=== PATIENT | male | born 1965 | race Caucasian/White ===

== ENCOUNTER → 2024-06-02 14:56 | Outpatient (REF) | payer OTHER, SELFPAY | LOC: RAD 14:56 | PROVIDERS: ATTENDING PHYSICIAN Nurse Practitioner Family | DX: J18.9 Pneumonia, unspecified organism (principal) | CPT/HCPCS: 71046 ==

== ENCOUNTER 2024-06-04 10:27 | Emergency (ER) | payer OTHER, SELFPAY ==
[2024-06-04 10:45] VITALS: BP 121/80
--- NOTE | 2024-06-04 12:00 | ED.GENMED ---
History of Present Illness
<Junior Davis DO, Resident - Last Filed: 06/04/24 14:08>
General
Chief Complaint: Eye Problems
Source: patient
Time Seen by Provider: 06/04/24 11:44
History of Present Illness
History of Present Illness:
Pt is a 58 YO M with no significant medical history presenting to the ED for vision changes. Right eye visual blurriness in lower outer quadrant began ~4 days ago. Pt saw PCP and plodding operator on Thursday and ordered MRI brain to R/o optic nerve
swelling/ tumor. He presents today to the ER because PCP told him to come in for testing. Pt has a referral to neuroophthalmology for 07/27.
Past History
<Junior Davis DO, Resident - Last Filed: 06/04/24 14:08>
Past History
ED Past Medical History: GERD
ED Past Surgical History: Orthopedic (Knee surgery back surgery); Negative Appendectomy or Bowel resection
Social History
Tobacco: Non-smoker
Alcohol: None
Drug: None
Personal:
Living: with family
Employment: Employed
Family History
Family History: Hypertension
Review of Systems
<Junior Davis DO, Resident - Last Filed: 06/04/24 14:08>
Review of Systems
Constitutional: Reports no symptoms
EENT: Reports other (vision changes, blurry vision in R eye)
Respiratory: Reports no symptoms
Cardiac: Reports no symptoms
ABD/GI: Reports no symptoms
: Reports no symptoms
Musculoskeletal: Reports muscle pain (right lateral pec soreness for 4 days )
Neurological: Reports no symptoms
Phy Exam
<Junior Davis DO, Resident - Last Filed: 06/04/24 14:08>
General Physical Exam
General Presentation: well appearing
General age: appears stated age
General Skin: warm and dry
General Habitus: normal
General Mental: alert
General Hydration: appears well hydrated
Eye Exam
Eye Exam: PERRL, conjunctiva normal and other (decreased visual field on R side)
Neurological Exam
Neurological Exam: alert, oriented x3, CN II-XII intact, no motor deficits, no sensory deficits and speech normal
Psychiatric Exam
Psychiatric Exam: normal mood/affect
Course
<Junior Davis DO, Resident - Last Filed: 06/04/24 14:08>
Orders/Labs/Results
Orders:
Orders
06/04/24 13:07
CT Head W/o Iv Contrast Urgent
Comment:
Reason For Exam: vision changes
Vital Signs
Initial and Last Documented VS:
Initial Vital Signs
Temp Pulse Resp BP Pulse Ox
98.5 F 63 18 121/80 95
06/04/24 10:45 06/04/24 10:45 06/04/24 10:45 06/04/24 10:45 06/04/24 10:45
Last Documented Vital Signs
Temp Pulse Resp BP Pulse Ox
98.5 F 63 18 121/80 95
06/04/24 10:45 06/04/24 10:45 06/04/24 10:45 06/04/24 10:45 06/04/24 10:45
<Agapito Jarvis DO - Last Filed: 06/04/24 13:13>
Orders/Labs/Results
Orders:
Orders
06/04/24 13:07
CT Head W/o Iv Contrast Urgent
Comment:
Reason For Exam: vision changes
Vital Signs
Initial and Last Documented VS:
Initial Vital Signs
Temp Pulse Resp BP Pulse Ox
98.5 F 63 18 121/80 95
06/04/24 10:45 06/04/24 10:45 06/04/24 10:45 06/04/24 10:45 06/04/24 10:45
Last Documented Vital Signs
Temp Pulse Resp BP Pulse Ox
98.5 F 63 18 121/80 95
06/04/24 10:45 06/04/24 10:45 06/04/24 10:45 06/04/24 10:45 06/04/24 10:45
<Junior Davis DO, Resident - Last Filed: 06/04/24 14:08>
MDM/Problems Addressed
Differential Diagnosis Includes:
optic neuritis, papilledema, hemiquadranopsia
MDM/Problems Addressed:
Pt is a 58 YO M with no significant medical history presenting to the ED for vision changes. CT Head without contrast ordered. CT head shows no acute intracranial abnormalities. Recommended patient get MRI outpatient
Chronic conditions affecting care:
NA
Acute Exacerbation and/or Progression of Chronic Illness:
NA
<Junior Davis DO, Resident - Last Filed: 06/04/24 14:08>
*Radiology
Radiology exam reviewed: radiology read reviewed (CT head shows no acute intracranial abnormalities)
*Pulse Oximetry
Patient hypoxic: no
*EKG
Interpreted by ED Provider?: NA
*Mash Tub Cooker Operator Interpretation
Rate: Mash Tub Cooker Operator- N/A
*Critical Care Note
Total Time (30-74mins, 75-104mins- exclusive of procedures): Not Applicable
ED Attending Note
<Junior Davis DO, Resident - Last Filed: 06/04/24 14:08>
-
Portions of this chart may have been created with voice recognition software.� Occasional wrong word or��sound alike� substitutions may have occurred due to the inherent limitations of voice recognition software.
<Agapito Jarvis DO - Last Filed: 06/04/24 13:13>
ED Attending Note
I performed the substantive portion of visit, reviewed & personally made and approve the management plan that is documented in note by myself or MENDOZA.: Yes
I performed a history and physical exam of patient and discussed management with resident, I reviewed resident's note and agree with documented findings and plan of care.: Yes
ED Attending Note:
I agree with the resident's note
Patient developed a partial quadrantanopsia with the right side of his vision several days ago. He was seen by an plodding operator who recommended the patient get a MRI as an outpatient because he saw 'fluid or inflammation of the optic nerve'.
Patient states that his primary care doctor suggest he might be able to get testing more rapidly if he came to the emergency room. Not clear this is the true story but this was the patient's impression. His symptoms have not changed since he seen
the plodding operator. He denies any headache, nausea, focal weakness numbness or tingling.
Neuro: Awake and alert and oriented x 3, no focal deficits, extraocular muscles intact
We will obtain a CT to exclude infarct or any large structural abnormality. Patient can follow-up and have the MRI as an outpatient.
Discharge Plan
Departure
Patient Disposition: Home (Routine Discharge)
Date of Disposition: 06/04/24
Time of Disposition: 14:04
Patient with high blood pressure during this ER visit?: No
Condition: Good
Discharge Problem:
Alteration in vision
Prescriptions:
No Action
No Meds [No Current Medications]
0
azithromycin [Zithromax] 250 MG tablet
250 mg PO UD Qty: 1 0RF
codeine-guaifenesin [Guiatuss AC] 120 ML liquid
10 ml PO Q6HPRN PRN (Reason: cough) Qty: 240 0RF
amoxicillin-pot clavulanate 1 TABLET tablet
1 tab PO Q12 Qty: 20 0RF
Referrals:
Jeanna Morrison MD [Family Provider] - Call in 1-3 days for appt
Interventions
Interventions:
*Risk Screen - Suicide Last Done: 06/04/24 10:45
*General Assessment Last Done: 06/04/24 10:45
*Neglect/Abuse Screening Last Done: 06/04/24 10:45
*ED COVID-19 Vaccine History Last Done: 06/04/24 10:45
Discharge Date and Time
Print Language: SPANISH
[2024-06-04 14:13] VITALS: BP 115/80
== END 2024-06-04 14:24 | disposition home or self-care (01) ==
LOC: EMR 10:27
PROVIDERS: EMERGENCY PHYSICIAN Emergency Medicine; FAMILY PHYSICIAN Internal Medicine
DX: H53.8 Other visual disturbances (principal); M79.18 Myalgia, other site; K21.9 Gastro-esophageal reflux disease without esophagitis; Z88.0 Allergy status to penicillin
CPT/HCPCS: 99284; 70450

== ENCOUNTER → 2024-06-13 11:39 | Outpatient (REF) | payer OTHER, SELFPAY | LOC: MRI 3T 11:39 | PROVIDERS: ATTENDING PHYSICIAN Nurse Practitioner Family | DX: H53.8 Other visual disturbances (principal) | CPT/HCPCS: 70553; A9575 ==

== ENCOUNTER → 2024-11-04 08:33 | Outpatient (REF) | payer OTHER, SELFPAY | LOC: HWRAD 08:33 | PROVIDERS: ATTENDING PHYSICIAN Nurse Practitioner Family | DX: M25.572 Pain in left ankle and joints of left foot (principal) | CPT/HCPCS: 73610 ==

== ENCOUNTER → 2024-11-25 15:42 | Outpatient (REF) | payer OTHER, SELFPAY | LOC: MRI 3T 15:42 | PROVIDERS: ATTENDING PHYSICIAN Orthopaedic Surgery; FAMILY PHYSICIAN Nurse Practitioner Family | DX: M25.572 Pain in left ankle and joints of left foot (principal) | CPT/HCPCS: 73721 ==

== ENCOUNTER → 2025-02-22 06:40 | Outpatient (REF) | payer OTHER, SELFPAY | LOC: MRI 06:40 | PROVIDERS: ATTENDING PHYSICIAN Anesthesiology; FAMILY PHYSICIAN Nurse Practitioner Family | DX: M54.14 Radiculopathy, thoracic region (principal) | CPT/HCPCS: 72146 ==

== ENCOUNTER → 2025-09-29 12:13 | Outpatient (REF) | payer OTHER, SELFPAY | LOC: HWRAD 12:13 | PROVIDERS: ATTENDING PHYSICIAN Nurse Practitioner Family | DX: R05.9 Cough, unspecified (principal) | CPT/HCPCS: 71046 ==

== ENCOUNTER → 2025-10-12 07:30 | Outpatient (REF) | payer OTHER, SELFPAY | LOC: RAD 07:30 | PROVIDERS: ATTENDING PHYSICIAN Nurse Practitioner Family | DX: R05.9 Cough, unspecified (principal) | CPT/HCPCS: 71260; Q9967 ==